=== PATIENT | male | born 1980 | race Caucasian/White ===

== ENCOUNTER → 2020-04-21 | Emergency (ER) | payer OTHER ==
[~2020-04-21] VITALS: Ht 175.3 cm; Wt 77.1 kg
[~2020-04-21] MED LIST: KETOROLAC TROMETHAMINE INJ 30 MG/ML VIAL ONE; KETOROLAC TROMETHAMINE INJ 60 MG/2 ML VIAL IM ONE
[2020-04-21 21:14] VITALS: BP 135/90
--- NOTE | 2020-04-21 21:20 | NUR ---
Stefanie dumont in ED - 04/21/20 at 2121 by SANDY PT BIBS FOR C/O "PINCHED NERVE ON THE BACK OF THE NECKRADIATING TO THE LUE AL SIDE OF THE FACE.
--- NOTE | 2020-04-21 21:21 | NUR ---
PT BIBS FOR C/O "PINCHED NERVE ON THE BACK OF THE NECKRADIATING TO THE LUE AL SIDE OF THE FACE. PT AAOX4, NO NEUROLOGICAL DEFICITS, RESPIRATIONS EVEN AND UNLABORED ON RA W/ NAD NOTED. PT CONNECTED TO THE MONITOR AND POX
== END | disposition home or self-care (01) ==
LOC: ER 21:02
DX: M54.12 Radiculopathy, cervical region (principal); Z98.890 Other specified postprocedural states; Z88.5 Allergy status to narcotic agent
CPT/HCPCS: 96372; 99283; J1885